=== PATIENT | female | born 1990 ===

== ENCOUNTER 2024-07-26 08:04 | Outpatient (CLI) | payer OTHER | END 2024-07-26 08:17 | disposition home or self-care (01) | LOC: TOM 08:04 | PROVIDERS: ATTEND Obstetrics & Gynecology Reproductive Endocrinology | DX: N70.11 Chronic salpingitis (principal) ==

== ENCOUNTER 2024-08-17 09:49 | Outpatient (CLI) | payer OTHER | END 2024-08-17 09:59 | disposition home or self-care (01) | LOC: SONOGRAMA 09:49 | DX: N84.0 Polyp of corpus uteri (principal) ==